=== PATIENT | male | born 1990 | race Caucasian/White ===

== ENCOUNTER 2016-10-29 15:48 | Inpatient (IN) | payer OTHER ==
[2016-10-29] MEDS ORDERED: RX INFO: IV CONTRAST WAS GIVEN 1 EACH MISC MISCELLANE PRN (16:06)
[2016-10-29] MEDS ORDERED: SODIUM CHLORIDE 0.9% 1,000 ML IV ONE (16:06)
--- NOTE | 2016-10-29 16:09 | ED ---
ENT HPI - General Source: patient, RN notes reviewed, old records reviewed Mode of arrival: ambulatory Limitations: no limitations <Myah Rodrigues - Last Filed: 10/29/16 17:18> <Aniceto Leon - Last Filed: 10/29/16 17:24> - General Chief complaint: Dental/Oral Stated complaint: Dental Pain Time Seen by Provider: 10/29/16 15:55 - History of Present Illness Initial comments: 26-year-old male presenting to the emergency department with chief complaint of left lower dental pain for the past day. Patient reports that he thinks that his wisdom tooth is impacted. Patient states that he woke up this morning and the side of his face is very swollen. Patient reports he is having a difficult time opening or closing his mouth due to the swelling. He denies any fever or chills. Patient reports that he's never had any problems with his teeth in the past. 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 (Myah Rodrigues) - Related Data Home Medications Medication Instructions Recorded Confirmed No Known Home Medications [No 10/29/16 10/29/16 Known Home Medications] Allergies Allergy/AdvReac Type Severity Reaction Status Date / Time No Known Allergies Allergy Verified 10/29/16 15:56 Review of Systems ROS Other: All systems not noted in ROS Statement are negative. <Myah Rodrigues - Last Filed: 10/29/16 17:18> ROS Other: All systems not noted in ROS Statement are negative. <Aniceto Leon - Last Filed: 10/29/16 17:24> ROS Statement: Those systems with pertinent positive or pertinent negative responses have been documented in the HPI. Past Medical History Past Medical History: No Reported History History of Any Multi-Drug Resistant Organisms: None Reported Past Surgical History: Orthopedic Surgery Past Psychological History: No Psychological Hx Reported Smoking Status: Current every day smoker Past Alcohol Use History: None Reported Past Drug Use History: None Reported <Myah Rodrigues - Last Filed: 10/29/16 17:18> General Exam Limitations: no limitations General appearance: alert, in no apparent distress Head exam: Present: atraumatic, normocephalic, normal inspection Eye exam: Present: normal appearance, PERRL, EOMI. Absent: scleral icterus, conjunctival injection, periorbital swelling ENT exam: Present: normal exam, mucous membranes moist, other (Evidence of an impacted tooth #17. Erythema and swelling around the gum. Patient has significant swelling and firmness over the left cheek.) Neck exam: Present: normal inspection. Absent: tenderness, meningismus, lymphadenopathy Respiratory exam: Present: normal lung sounds bilaterally. Absent: respiratory distress, wheezes, rales, rhonchi, stridor Cardiovascular Exam: Present: regular rate, normal rhythm, normal heart sounds. Absent: systolic murmur, diastolic murmur, rubs, gallop, clicks GI/Abdominal exam: Present: soft, normal bowel sounds. Absent: distended, tenderness, guarding, rebound, rigid Extremities exam: Present: normal inspection, full ROM, normal capillary refill. Absent: tenderness, pedal edema, joint swelling, calf tenderness Back exam: Present: normal inspection Neurological exam: Present: alert, oriented X3, CN II-XII intact Psychiatric exam: Present: normal affect, normal mood Skin exam: Present: warm, dry, intact, normal color. Absent: rash <Myah Rodrigues - Last Filed: 10/29/16 17:18> <Aniceto Leon - Last Filed: 10/29/16 17:24> - General Exam Comments Initial Comments: This is a pleasant 26-year-old male. No acute distress. (Myah Rodrigues) Medical Decision Making - Lab Data Result diagrams: 10/29/16 16:20 10/29/16 16:20 - Radiology Data Radiology results: report reviewed <Myah Rodrigues - Last Filed: 10/29/16 17:18> - Lab Data Result diagrams: 10/29/16 16:20 10/29/16 16:20 <Aniceto Leon - Last Filed: 10/29/16 17:24> - Medical Decision Making This is a 26 year male presents emergency Department chief complaint of left lower molar pain for the past day. Patient with that he woke up and his entire face is very swollen. Denies any fever. Patient has significant extensive swelling and firmness over the left lower cheek and into the mandible. Reports pain with opening and closing his jaw due to swelling. Patient received IV fluids, and blood work. Patient blood work was reviewed, mild leukocytosis of 12.3. Blood cultures obtained. Patient received CT facial bones. Evidence of a 2 cm abscess in the left mandible area. He has some cutaneous edema. Discussed this case with Dr. Leno. We will consult Dr. Carbone the oral surgeon. Patient will be admitted for IV antibiotics. Patient will be receiving clindamycin and pain medication. Patient agrees with the admission. ( Myah Rodrigues) Medical decision-making. This is a 26-year-old male to complaint of swelling and pain to the left side of his face. CT shows evidence of subcutaneous edema over the left side of the face adjacent to the mandible. There is noted a 2 cm hypodense area in the lateral aspect of the left mandible consistent with a phlegmon or abscess. No evidence of osteomyelitis per Dr. Hedrick the radiologist. Patient's white count 12,000. He reports that this is a rather acute onset. He has no difficulty breathing. Afebrile temp 98.4. No other significant medical problems. The case discussed with Dr. Jovany Carbone on-call oral surgeon. Patient be admitted his service the patient will be started on Unasyn 3 g every 6 hours. Nothing by mouth after midnight. Nurses will be notified of the patient has any difficulty swallowing or breathing the attendings to be notified immediately. Dr. Leon (Aniceto Leon) - Lab Data Lab Results 10/29/16 10/29/16 Range/Units 16:20 16:20 WBC 12.3 H (3.8-10.6) k/uL RBC 4.91 (4.30-5.90) m/uL Hgb 14.9 (13.0-17.5) gm/dL Hct 44.6 (39.0-53.0) % MCV 90.9 (80.0-100.0) fL MCH 30.4 (25.0-35.0) pg MCHC 33.5 (31.0-37.0) g/dL RDW 13.5 (11.5-15.5) % Plt Count 182 (150-450) k/uL Neutrophils % 76 % Lymphocytes % 15 % Monocytes % 6 % Eosinophils % 2 % Basophils % 0 % Neutrophils # 9.3 H (1.3-7.7) k/uL Lymphocytes # 1.8 (1.0-4.8) k/uL Monocytes # 0.7 (0-1.0) k/uL Eosinophils # 0.2 (0-0.7) k/uL Basophils # 0.1 (0-0.2) k/uL Sodium 141 (137-145) mmol/L Potassium 3.5 (3.5-5.1) mmol/L Chloride 104 (98-107) mmol/L Carbon Dioxide 27 (22-30) mmol/L Anion Gap 10 mmol/L BUN 13 (9-20) mg/dL Creatinine 0.69 (0.66-1.25) mg/dL Est GFR (MDRD) Af Amer >60 (>60 ml/min/1.73 sqM) Est GFR (MDRD) Non-Af >60 (>60 ml/min/1.73 sqM) Glucose 94 (74-99) mg/dL Calcium 9.4 (8.4-10.2) mg/dL - Radiology Data Subcutaneous edema over the left side of the face adjacent to the mandible. There is a 2 cm hypodense area on the lateral aspect of the mandible consistent with phlegmon or abscess. No evidence of osteomyelitis. (Myah Rodrigues) Disposition Time of Disposition: 17:20 <Myah Rodrigues - Last Filed: 10/29/16 17:18> <Aniceto Leon - Last Filed: 10/29/16 17:24> Clinical Impression: Dental abscess Disposition: ADMITTED IP TO THIS [facility] Condition: Stable Referrals: None,Stated [Primary Care Provider] - 1-2 days
[2016-10-29 16:30] LABS: Basophils # (A) 0.1 k/uL (0-0.2); Basophils % (A) 0 %; CH 31.1; CHCM 34.3; Eosinophils # (A) 0.2 k/uL (0-0.7); Eosinophils % (A) 2 %; HCT 44.6 % (39.0-53.0); HGB 14.9 gm/dL (13.0-17.5); Luc # (Auto) 0.15; Luc % (Auto) 1; Lymphocytes # (A) 1.8 k/uL (1.0-4.8); Lymphocytes % (A) 15 %; MCH 30.4 pg (25.0-35.0); MCHC 33.5 g/dL (31.0-37.0); MCV 90.9 fL (80.0-100.0); Mean Platelet Volume 6.7; Monocytes # (A) 0.7 k/uL (0-1.0); Monocytes % (A) 6 %; Neutrophils # (A) 9.3 k/uL (1.3-7.7); Neutrophils % (A) 76 %; RBC 4.91 m/uL (4.30-5.90); RDW 13.5 % (11.5-15.5); WBC 12.3 k/uL (3.8-10.6); WBC (Perox) 12.12
[2016-10-29 16:49] LABS: Anion Gap 10 mmol/L; Blood Urea Nitrogen 13 mg/dL (9-20); Calcium 9.4 mg/dL (8.4-10.2); Carbon Dioxide 27 mmol/L (22-30); Chloride 104 mmol/L (98-107); Glucose 94 mg/dL (74-99); Non-African American GFR(MDRD) >60 (>60 ml/min/1.73 sqM); Potassium 3.5 mmol/L (3.5-5.1); Sodium 141 mmol/L (137-145)
[2016-10-29] MEDS ORDERED: CLINDAMYCIN 600 MG in DEXTROSE 5% IN WATER 50 ML IVPB STA ×2 (17:02)
--- NOTE | 2016-10-29 17:08 | CT ---
EXAMINATION TYPE: CT facial bones w con DATE OF EXAM: 10/29/2016 4:46 PM COMPARISON: NONE HISTORY: Left sided facial swelling starting today. CT DLP: 795.90 mGycm Automated exposure control for dose reduction was used. CONTRAST: CT scan of the facial bones is performed with IV Contrast, patient injected with 100 mL of Omnipaque 300. TECHNIQUE: CT scan of the sinuses is performed without contrast, axial images are obtained, coronal r eformatted images are also reviewed. FINDINGS: The orbital margins are intact. There is no evidence of a blowout fracture. There is fairly normal development and aeration of the paranasal sinuses. There is bilateral patency of the osteal m etal complex. The maxilla is intact. There is subcutaneous edema over the left side of the mandible. There is a 2 cm rounded poorly defined hypodense area adjacent to the left hemimandible consistent wi th a phlegmon or abscess. The zygomatic arches appear normal. I see no focal bony destructive process. IMPRESSION: Subcutaneous edema over the left side of the face adjacent to the mandible. There is a 2 cm hypodense area on the lateral aspect of the left hemimandible consistent with a phlegmon or absces s. No evidence of osteomyelitis.
[2016-10-29] MEDS ORDERED: ONDANSETRON 4 MG/2 ML VIAL IVP PRN (17:20)
[2016-10-29] MEDS ORDERED: NALOXONE 0.4 MG/ML 1 ML VIAL IV PRN (17:20)
[2016-10-29] MEDS ORDERED: LORazepam 2 MG/ML SYRINGE IV PRN (17:20)
[2016-10-29] MEDS ORDERED: ACETAMINOPHEN TAB 325 MG TAB PO PRN (17:20)
[2016-10-29] MEDS ORDERED: KETOROLAC 30 MG/ML 1 ML VIAL IVP PRN (17:20)
[2016-10-29] MEDS ORDERED: AMPICILLIN-SULBACTAM 3 GM in SODIUM CHLORIDE 0.9% 100 ML IVPB STA (17:28)
[2016-10-29] MEDS: SODIUM CHLORIDE 0.9% 1,000 ML IV SCH (17:41)
[2016-10-29] MEDS: MORPHINE SULFATE 4 MG/ML SYRINGE IV PRN ×2 (17:48→20:47)
[2016-10-29 18:33] VITALS: RESP 16
[2016-10-29 19:25] VITALS: BP 131/76; PULSE 62; TEMP 98.4; BMI 22.4
[2016-10-30] MEDS: AMPICILLIN-SULBACTAM 3 GM in SODIUM CHLORIDE 0.9% 100 ML IVPB SCH ×2 (00:24→05:02)
[2016-10-30] MEDS: SODIUM CHLORIDE 0.9% 1,000 ML IV SCH (05:02)
[2016-10-30] MEDS: MORPHINE SULFATE 4 MG/ML SYRINGE IV PRN (06:09)
--- NOTE | 2016-10-30 07:27 | P.GSHP ---
History of Present Illness H&P Date: 10/30/16 Chief Complaint: My face is swollen 26-year-old male comes in with swelling of the face and started yesterday reports having as well as tooth on the top removed but felt that the lower wisdom tooth was painful and he said it started yesterday. He received 3 doses of IV Unasyn overnight and this morning he feels that his swelling is much improved. His pain is also improved is able to open his mouth. - Constitutional Constitutional: Denies chills, Denies fever - EENT Comment: Reported face swelling has improved since yesterday Ears, nose, mouth and throat: Reports bleeding gums, Reports dental pain, Reports mouth pain, Reports swelling in mouth - Cardiovascular Cardiovascular: Denies chest pain, Denies shortness of breath - Gastrointestinal Gastrointestinal: Denies abdominal pain, Denies diarrhea, Denies nausea, Denies vomiting - Genitourinary (Female) Genitourinary: Denies dysuria, Denies hematuria - Menstruation Menstruation: Reports as per HPI - Musculoskeletal Musculoskeletal: Reports as per HPI - Neurological Neurological: Reports as per HPI Past Medical History Past Medical History: No Reported History Additional Past Medical History / Comment(s): MRSA IN RIGHT ARM WOUND 2006 History of Any Multi-Drug Resistant Organisms: MRSA Date of last positivie culture/infection: 2006 MDRO Source:: RIGHT ARM WOUND Past Surgical History: Orthopedic Surgery Additional Past Surgical History / Comment(s): ORAL SURGERY Past Anesthesia/Blood Transfusion Reactions: No Reported Reaction Past Psychological History: No Psychological Hx Reported Smoking Status: Current every day smoker Past Alcohol Use History: None Reported Past Drug Use History: None Reported Medications and Allergies Home Medications Medication Instructions Recorded Confirmed Type No Known Home Medications [No 10/29/16 10/29/16 History Known Home Medications] Allergies Allergy/AdvReac Type Severity Reaction Status Date / Time No Known Allergies Allergy Verified 10/29/16 17:53 Surgical - Exam Vital Signs Temp Pulse Resp BP Pulse Ox 98.4 F 75 18 142/80 98 10/29/16 15:55 10/29/16 15:55 10/29/16 15:55 10/29/16 15:55 10/29/16 15:55 - General well developed, well nourished, no distress, moderate pain - Eyes PERRL, normal ocular movement - ENT He has a soft 1 cm swelling adjacent to the outer aspect of the mandible near the lower was some tooth #17. His mouth opening is approximately 28 mm with some redness and slight bleeding around the inés-coronal tissues of tooth #17 - Neck Slight swelling associated with the left mandible - Respiratory normal expansion, normal respiratory effort - Cardiovascular Rhythm: regular - Abdomen Abdomen: soft, non tender Results - Labs 10/29/16 16:20 10/29/16 16:20 Abnormal Lab Results - Last 24 Hours (Table) 10/29/16 Range/Units 16:20 WBC 12.3 H (3.8-10.6) k/uL Neutrophils # 9.3 H (1.3-7.7) k/uL Diabetes panel 10/29/16 Range/Units 16:20 Sodium 141 (137-145) mmol/L Potassium 3.5 (3.5-5.1) mmol/L Chloride 104 (98-107) mmol/L Carbon Dioxide 27 (22-30) mmol/L BUN 13 (9-20) mg/dL Creatinine 0.69 (0.66-1.25) mg/dL Glucose 94 (74-99) mg/dL Calcium 9.4 (8.4-10.2) mg/dL Calcium panel 10/29/16 Range/Units 16:20 Calcium 9.4 (8.4-10.2) mg/dL Pituitary panel 10/29/16 Range/Units 16:20 Sodium 141 (137-145) mmol/L Potassium 3.5 (3.5-5.1) mmol/L Chloride 104 (98-107) mmol/L Carbon Dioxide 27 (22-30) mmol/L BUN 13 (9-20) mg/dL Creatinine 0.69 (0.66-1.25) mg/dL Glucose 94 (74-99) mg/dL Calcium 9.4 (8.4-10.2) mg/dL Adrenal panel 10/29/16 Range/Units 16:20 Sodium 141 (137-145) mmol/L Potassium 3.5 (3.5-5.1) mmol/L Chloride 104 (98-107) mmol/L Carbon Dioxide 27 (22-30) mmol/L BUN 13 (9-20) mg/dL Creatinine 0.69 (0.66-1.25) mg/dL Glucose 94 (74-99) mg/dL Calcium 9.4 (8.4-10.2) mg/dL Assessment and Plan (1) Dental abscess Narrative/Plan: Patient is nothing by mouth and is maintaining his nothing by mouth status after midnight the plan is to take him to the office soon as he discharged and sedated and removed the tooth that's offending the tissue and if any pus present established drainage. Due to the patient's improvement overnight with antibiotics Unasyn will be switched to Augmentin outpatient. Patient was reminded to bring an escort driving home from my office Status: Acute Time with Patient: Less than 30
[2016-10-30] MEDS ORDERED: PANTOPRAZOLE 40 MG/10 ML VIAL IV SCH (09:00)
== END 2016-10-30 07:40 | disposition home or self-care (01) | DRG 159 ==
LOC: EC 15:48 → 3SUR 17:45
PROVIDERS: ADMIT Dentist Oral and Maxillofacial Surgery; ATTEND Dentist Oral and Maxillofacial Surgery
DX: K04.7 Periapical abscess without sinus (principal); R13.10 Dysphagia, unspecified; F17.200 Nicotine dependence, unspecified, uncomplicated; Z86.14 Personal history of Methicillin resistant Staphylococcus aureus infection
CPT/HCPCS: 36415; 70487; 80048; 85025; 87040; 96361; 96374; 99285